=== PATIENT | male | born 1950 | race Caucasian/White ===

== ENCOUNTER 2018-09-07 00:22 | Emergency (ER) | payer OTHER ==
[~2018-09-07] VITALS: Ht 180.3 cm; Wt 78.5 kg
[2018-09-07 00:36] VITALS: BP 100/71
[2018-09-07] MEDS ORDERED: RISPERDAL0.25 MG PO (00:41)
[2018-09-07] MEDS ORDERED: AMITRIPTYLINE H25 M2 PO (00:42)
[2018-09-07] MEDS ORDERED: REQUIP3 MG PO (00:42)
[2018-09-07 01:17] LABS: URINE BILIRUBIN NEGATIVE (Negative); URINE BLOOD TRACE (Negative); URINE CLARITY CLEAR; URINE COLOR YELLOW; URINE GLUCOSE-RANDOM NEGATIVE (Negative); URINE KETONES NEGATIVE (Negative); URINE LEUKOCYTES-REFLEX NEGATIVE (Negative); URINE NITRITE-REFLEX NEGATIVE (Negative); URINE PROTEIN 1+ (Negative); URINE SPECIFIC GRAVITY 1.025 (1.005-1.030); URINE UROBILINOGEN 0.2 E.U./dl (0.2-1.0)
[2018-09-07 01:25] LABS: ABSOLUTE EOSINOPHILS 0.1 thou/uL (0.0-0.7); ABSOLUTE MONOCYTES 0.7 thou/uL (0.0-1.2); ABSOLUTE NEUTROPHILS 7.6 thou/uL (1.6-8.1); BASOPHILS 0.5 %; HEMATOCRIT 39.4 % (42.0-52.0); HEMOGLOBIN 13.1 gm/dL (14.0-18.0); LYMPHOCYTES 10.7 %; MCH 31.1 pg (26.0-34.0); MCHC 33.4 g/dL (28.0-37.0); MCV 93.2 fL (80.0-100.0); MONOCYTES 7.8 %; MPV 7.8 fl. (7.2-11.1); NUCLEATED RBCS 0 /100WBC; PLATELET COUNT* 206 thou/uL (150-400); RBC 4.22 mil/uL (4.50-6.00); RDW-CV 13.8 % (10.5-14.5); WBC 9.6 thou/uL (4.0-11.0)
[2018-09-07 01:30] LABS: ANION GAP 16 mmol/L (7-16); BUN 33 mg/dL (7-18); CALCIUM 8.1 mg/dL (8.5-10.1); CHLORIDE 111 mmol/L (98-107); CO2 15 mmol/L (21-32); GLUCOSE 140 mg/dL (70-99); SODIUM 142 mmol/L (136-145)
[2018-09-07 01:32] LABS: POTASSIUM 2.7 mmol/L (3.5-5.1)
[2018-09-07 01:39] LABS: ALBUMIN 2.9 g/dL (3.4-5.0); ALKALINE PHOSPHATASE 123 U/L (46-116); LIPASE 394 U/L (73-393); SGOT 22 U/L (15-37); SGPT 33 U/L (30-65); TOTAL BILIRUBIN 0.2 mg/dL (<0.1-1.0); TROPONIN-I LEVEL <0.06 ng/mL (<0.06)
[2018-09-07] MEDS ORDERED: NORCO 5-325 TA1 EACH PO (04:03)
[2018-09-07] MEDS ORDERED: PHENERGAN 25 MG25 M1 PO (04:03)
[2018-09-07] MEDS ORDERED: POTASSIUM20 PO (04:03)
[2018-09-07 04:16] VITALS: BP 99/68
== END 2018-09-07 04:20 | disposition home or self-care (01) ==
LOC: M.ERS 00:22 → M.TBA-ER 03:58 → M.ERS 03:58
PROVIDERS: Personal Emergency Response Attendant
DX: K50.90 Crohn's disease, unspecified, without complications (principal); E87.6 Hypokalemia; F17.210 Nicotine dependence, cigarettes, uncomplicated; Z88.0 Allergy status to penicillin; Z88.8 Allergy status to other drugs, medicaments and biological substances

== ENCOUNTER 2018-09-17 21:02 | Emergency (ER) | payer OTHER ==
[~2018-09-17] VITALS: Ht 180.3 cm; Wt 78.5 kg
[~2018-09-17 21:02] MED LIST: AMITRIPTYLINE H25 M2 PO; NORCO 5-325 TA1 EACH PO; PHENERGAN 25 MG25 M1 PO; POTASSIUM20 PO; REQUIP3 MG PO; RISPERDAL0.25 MG PO
[2018-09-17 21:44] LABS: ABSOLUTE BASOPHILS 0.1 thou/uL (0.0-0.2); ABSOLUTE EOSINOPHILS 0.1 thou/uL (0.0-0.7); ABSOLUTE LYMPHOCYTES 1.4 thou/uL (0.8-5.3); ABSOLUTE MONOCYTES 0.8 thou/uL (0.0-1.2); ABSOLUTE NEUTROPHILS 5.6 thou/uL (1.6-8.1); EOSINOPHILS 1.7 %; HEMATOCRIT 37.1 % (42.0-52.0); HEMOGLOBIN 12.6 gm/dL (14.0-18.0); MCH 31.9 pg (26.0-34.0); MCV 93.7 fL (80.0-100.0); MONOCYTES 9.5 %; MPV 7.8 fl. (7.2-11.1); NUCLEATED RBCS 0 /100WBC; PLATELET COUNT* 232 thou/uL (150-400); POLYS 70.8 %; RBC 3.96 mil/uL (4.50-6.00)
[2018-09-17 21:47] LABS: URINE BILIRUBIN NEGATIVE (Negative); URINE BLOOD NEGATIVE (Negative); URINE CLARITY CLEAR; URINE COLOR YELLOW; URINE GLUCOSE-RANDOM NEGATIVE (Negative); URINE KETONES NEGATIVE (Negative); URINE LEUKOCYTES-REFLEX NEGATIVE (Negative); URINE NITRITE-REFLEX NEGATIVE (Negative); URINE PROTEIN 1+ (Negative); URINE SPECIFIC GRAVITY 1.025 (1.005-1.030); URINE UROBILINOGEN 0.2 E.U./dl (0.2-1.0)
[2018-09-17 21:51] LABS: CALCIUM 8.4 mg/dL (8.5-10.1); CREATININE 1.8 mg/dL (0.6-1.3); POTASSIUM 3.1 mmol/L (3.5-5.1)
[2018-09-17 21:55] LABS: ALBUMIN 2.9 g/dL (3.4-5.0); TOTAL BILIRUBIN 0.2 mg/dL (<0.1-1.0); TOTAL PROTEIN 6.1 g/dL (6.4-8.2)
[2018-09-17] MEDS ORDERED: MEDROLDOSEPACK PO (22:37)
[2018-09-17 22:59] VITALS: BP 103/76
== END 2018-09-17 22:59 | disposition home or self-care (01) ==
LOC: M.ERS 21:02
PROVIDERS: Nurse Practitioner Family
DX: R10.33 Periumbilical pain (principal); F31.9 Bipolar disorder, unspecified; Z90.49 Acquired absence of other specified parts of digestive tract; F17.210 Nicotine dependence, cigarettes, uncomplicated; Z88.0 Allergy status to penicillin; Z88.8 Allergy status to other drugs, medicaments and biological substances; R19.7 Diarrhea, unspecified

== ENCOUNTER 2018-09-26 22:37 | Emergency (ER) | payer OTHER ==
[~2018-09-26] VITALS: Ht 180.3 cm; Wt 78.5 kg
[~2018-09-26 22:37] MED LIST changes: +MEDROLDOSEPACK PO
[2018-09-26 23:30] LABS: URINE BILIRUBIN NEGATIVE (Negative); URINE BLOOD TRACE (Negative); URINE CLARITY CLEAR; URINE COLOR YELLOW; URINE GLUCOSE-RANDOM NEGATIVE (Negative); URINE KETONES NEGATIVE (Negative); URINE LEUKOCYTES-REFLEX NEGATIVE (Negative); URINE NITRITE-REFLEX NEGATIVE (Negative); URINE PROTEIN 2+ (Negative); URINE UROBILINOGEN 0.2 E.U./dl (0.2-1.0)
[2018-09-26 23:36] LABS: ABSOLUTE BASOPHILS 0.1 thou/uL (0.0-0.2); ABSOLUTE EOSINOPHILS 0.1 thou/uL (0.0-0.7); ABSOLUTE LYMPHOCYTES 1.5 thou/uL (0.8-5.3); ABSOLUTE MONOCYTES 1.2 thou/uL (0.0-1.2); ABSOLUTE NEUTROPHILS 12.3 thou/uL (1.6-8.1); BASOPHILS 0.5 %; EOSINOPHILS 0.6 %; HEMATOCRIT 41.3 % (42.0-52.0); HEMOGLOBIN 13.6 gm/dL (14.0-18.0); LYMPHOCYTES 9.6 %; MCH 31.4 pg (26.0-34.0); MCHC 33.1 g/dL (28.0-37.0); MONOCYTES 8.2 %; MPV 7.7 fl. (7.2-11.1); NUCLEATED RBCS 0 /100WBC; PLATELET COUNT* 238 thou/uL (150-400); POLYS 81.1 %; RBC 4.34 mil/uL (4.50-6.00); RDW-CV 13.6 % (10.5-14.5); WBC 15.2 thou/uL (4.0-11.0)
[2018-09-26 23:40] LABS: BACTERIA-REFLEX 1-9 Few /HPF (None Seen); CASTS None Seen /LPF (None Seen); CRYSTALS None Seen /LPF (None Seen); SQUAMOUS 0-3 Few /LPF (0-3); URINE RBC 0-2 Rare /HPF (0-2); URINE WBC-REFLEX 0-5 Rare /HPF (0-5)
[2018-09-26 23:45] LABS: ANION GAP 16 mmol/L (7-16); BUN 31 mg/dL (7-18); CALCIUM 8.4 mg/dL (8.5-10.1); CHLORIDE 106 mmol/L (98-107); CO2 16 mmol/L (21-32); CREATININE 1.8 mg/dL (0.6-1.3); GLUCOSE 102 mg/dL (70-99); SODIUM 138 mmol/L (136-145)
[2018-09-26 23:48] LABS: POTASSIUM 2.7 mmol/L (3.5-5.1)
[2018-09-26 23:51] LABS: ALBUMIN 2.9 g/dL (3.4-5.0); ALKALINE PHOSPHATASE 111 U/L (46-116); LIPASE 280 U/L (73-393); SGOT 16 U/L (15-37); SGPT 20 U/L (30-65); TOTAL BILIRUBIN 0.3 mg/dL (<0.1-1.0); TOTAL PROTEIN 6.7 g/dL (6.4-8.2); TROPONIN-I LEVEL <0.06 ng/mL (<0.06)
[2018-09-27 00:10] LABS: AMP/METHAMP Negative (Negative); BARBITURATES Negative (Negative); BENZODIAZEPINES Negative (Negative); COCAINE Negative (Negative); METHADONE Negative (Negative); OPIATES Negative (Negative); PCP Negative (Negative); THC Negative (Negative)
[2018-09-27] MEDS ORDERED: ONDANSETRON HCL4 M2 PO (00:40)
[2018-09-27] MEDS ORDERED: ACETAMINOPHEN-1 EAC1 PO (00:40)
[2018-09-27] MEDS ORDERED: POTASSIUM20 PO (00:41)
[2018-09-27] MEDS ORDERED: CIPROFLOXACIN500 M1 PO (02:44)
[2018-09-27] MEDS ORDERED: FLAGYL500 M1 PO (02:44)
[2018-09-27 03:14] VITALS: BP 108/66
--- NOTE | 2018-09-27 11:35 | EKG ---
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 : 1950 Requested By: Amberly Whiteside Order Number: [id number] MD: Maurilio Marie Measurements Intervals [place] Rate: 60 P: 81 [place]: 179 QRS: 76 QRSD: 102 T: 74 QT: 390 QTc: 390 Interpretive Statements Sinus rhythm Low voltage, extremity leads Nonspecific T abnormalities, lateral leads No previous ECG available for comparison Electronically Signed On 09-27-2018 11:35:30 CDT by Maurilio Marie [email or web address] <ELECTRONICALLY SIGNED> By: Maurilio Marie MD, [facility] 09/27/18 1135 26 26 Maurilio Marie MD, [facility] /EPI
== END 2018-09-27 03:16 | disposition home or self-care (01) ==
LOC: M.ERS 22:37
PROVIDERS: Physician Assistant
DX: K50.90 Crohn's disease, unspecified, without complications (principal); E87.6 Hypokalemia; R11.2 Nausea with vomiting, unspecified; F31.9 Bipolar disorder, unspecified; F17.210 Nicotine dependence, cigarettes, uncomplicated; Z88.8 Allergy status to other drugs, medicaments and biological substances; Z88.6 Allergy status to analgesic agent; Z88.0 Allergy status to penicillin; Z91.013 Allergy to seafood; Z90.49 Acquired absence of other specified parts of digestive tract

== ENCOUNTER 2018-12-02 23:44 | Emergency (ER) | payer OTHER ==
[~2018-12-02] VITALS: Ht 180.3 cm; Wt 76.7 kg
[~2018-12-02 23:44] MED LIST changes: +ACETAMINOPHEN-1 EAC1 PO; +CIPROFLOXACIN500 M1 PO; +FLAGYL500 M1 PO; +ONDANSETRON HCL4 M2 PO
[2018-12-02] MEDS ORDERED: REQUIP5 MG PO ×2 (23:49)
[2018-12-02] MEDS ORDERED: POTASSIUM20 PO (23:50)
[2018-12-03 00:21] LABS: ABSOLUTE BASOPHILS 0.1 thou/uL (0.0-0.2); ABSOLUTE EOSINOPHILS 0.1 thou/uL (0.0-0.7); ABSOLUTE LYMPHOCYTES 1.4 thou/uL (0.8-5.3); ABSOLUTE MONOCYTES 0.9 thou/uL (0.0-1.2); ABSOLUTE NEUTROPHILS 6.7 thou/uL (1.6-8.1); BASOPHILS 0.8 %; EOSINOPHILS 1.2 %; HEMATOCRIT 39.3 % (42.0-52.0); HEMOGLOBIN 13.2 gm/dL (14.0-18.0); LYMPHOCYTES 14.9 %; MCH 32.4 pg (26.0-34.0); MCHC 33.5 g/dL (28.0-37.0); MCV 96.7 fL (80.0-100.0); MONOCYTES 10.1 %; NUCLEATED RBCS 0 /100WBC; PLATELET COUNT* 208 thou/uL (150-400); RBC 4.06 mil/uL (4.50-6.00); RDW-CV 13.8 % (10.5-14.5); WBC 9.2 thou/uL (4.0-11.0)
[2018-12-03 00:50] LABS: CALCIUM 8.4 mg/dL (8.5-10.1); CREATININE 2.5 mg/dL (0.6-1.3); TOTAL BILIRUBIN 0.3 mg/dL (<0.1-1.0); TOTAL PROTEIN 6.2 g/dL (6.4-8.2)
[2018-12-03 00:55] LABS: POTASSIUM 3.1 mmol/L (3.5-5.1)
[2018-12-03] MEDS ORDERED: FLAGYL500 M1 PO (03:53)
[2018-12-03] MEDS ORDERED: ACETAMINOPHEN-1 EAC1 PO (03:53)
[2018-12-03] MEDS ORDERED: PREDNISONE50 MG PO (03:53)
[2018-12-03 04:03] VITALS: BP 104/64
== END 2018-12-03 04:03 | disposition home or self-care (01) ==
LOC: M.ERS 23:44
PROVIDERS: Emergency Medicine
DX: R10.13 Epigastric pain (principal); R19.7 Diarrhea, unspecified; R10.30 Lower abdominal pain, unspecified; F31.9 Bipolar disorder, unspecified; K50.90 Crohn's disease, unspecified, without complications; F17.210 Nicotine dependence, cigarettes, uncomplicated; Z88.0 Allergy status to penicillin; Z90.49 Acquired absence of other specified parts of digestive tract; Z88.6 Allergy status to analgesic agent; Z88.8 Allergy status to other drugs, medicaments and biological substances; Z91.013 Allergy to seafood

== ENCOUNTER 2019-03-12 00:46 | Emergency (ER) | payer OTHER ==
[~2019-03-12] VITALS: Ht 180.3 cm; Wt 70.3 kg
[~2019-03-12 00:46] MED LIST changes: +PREDNISONE50 MG PO; +REQUIP5 MG PO
[2019-03-12 00:56] VITALS: BP 102/68
[2019-03-12 01:40] LABS: ABSOLUTE BASOPHILS 0.1 thou/uL (0.0-0.2); ABSOLUTE EOSINOPHILS 0.1 thou/uL (0.0-0.7); ABSOLUTE LYMPHOCYTES 1.7 thou/uL (0.8-5.3); ABSOLUTE MONOCYTES 0.8 thou/uL (0.0-1.2); ABSOLUTE NEUTROPHILS 6.9 thou/uL (1.6-8.1); BASOPHILS 0.6 %; EOSINOPHILS 1.2 %; HEMATOCRIT 39.7 % (42.0-52.0); HEMOGLOBIN 13.5 gm/dL (14.0-18.0); LYMPHOCYTES 17.6 %; MCH 32.1 pg (26.0-34.0); MCHC 33.9 g/dL (28.0-37.0); MCV 94.6 fL (80.0-100.0); MONOCYTES 8.4 %; MPV 7.6 fl. (7.2-11.1); NUCLEATED RBCS 0 /100WBC; PLATELET COUNT* 220 thou/uL (150-400); POLYS 72.2 %; RBC 4.19 mil/uL (4.50-6.00); RDW-CV 13.6 % (10.5-14.5); WBC 9.5 thou/uL (4.0-11.0)
[2019-03-12 01:42] LABS: URINE BILIRUBIN NEGATIVE (Negative); URINE BLOOD TRACE (Negative); URINE CLARITY CLEAR; URINE COLOR YELLOW; URINE GLUCOSE-RANDOM NEGATIVE (Negative); URINE KETONES NEGATIVE (Negative); URINE LEUKOCYTES-REFLEX NEGATIVE (Negative); URINE NITRITE-REFLEX NEGATIVE (Negative); URINE PROTEIN TRACE (Negative); URINE UROBILINOGEN 0.2 E.U./dl (0.2-1.0)
[2019-03-12 01:49] LABS: CREATININE 2.2 mg/dL (0.6-1.3); POTASSIUM 3.4 mmol/L (3.5-5.1)
[2019-03-12 01:53] LABS: ALBUMIN 3.3 g/dL (3.4-5.0); TOTAL BILIRUBIN 0.3 mg/dL (<0.1-1.0); TOTAL PROTEIN 6.8 g/dL (6.4-8.2)
[2019-03-12 03:45] VITALS: BP 89/58
--- NOTE | 2019-03-14 10:45 | EKG ---
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1950 Requested By: Clayton Ayon Order Number: [id number] MD: Dimitris Roberts Measurements Intervals [place] Rate: 62 P: 79 [place]: 185 QRS: 56 QRSD: 99 T: 43 QT: 415 QTc: 422 Interpretive Statements Sinus rhythm Atrial premature complex Low voltage, extremity leads Minimal ST elevation, anterior leads Compared to ECG 10/08/2018 22:48:04 Atrial premature complex(es) now present ST (T wave) deviation now present Electronically Signed On 03-14-2019 10:45:18 RIDE OPERATOR by Dimitris Roberts [email or web address] <ELECTRONICALLY SIGNED> By: Dimitris Roberts MD, FACC 03/14/19 1045 0147 0147 Dimitris Roberts MD, FAC /EPI
== END 2019-03-12 03:45 | disposition home or self-care (01) ==
LOC: M.ERS 00:46 → M.TBA-ER 03:24 → M.ERS 03:24
PROVIDERS: Family Medicine
DX: R10.84 Generalized abdominal pain (principal); F31.9 Bipolar disorder, unspecified; F17.210 Nicotine dependence, cigarettes, uncomplicated; Z88.0 Allergy status to penicillin; Z88.6 Allergy status to analgesic agent; Z91.013 Allergy to seafood; Z88.8 Allergy status to other drugs, medicaments and biological substances; Z90.49 Acquired absence of other specified parts of digestive tract

== ENCOUNTER 2019-03-28 22:59 | Emergency (ER) | payer OTHER ==
[~2019-03-28] VITALS: Ht 180.3 cm; Wt 74.8 kg
[2019-03-29 00:05] LABS: ABSOLUTE BASOPHILS 0.1 thou/uL (0.0-0.2); ABSOLUTE EOSINOPHILS 0.1 thou/uL (0.0-0.7); ABSOLUTE LYMPHOCYTES 1.4 thou/uL (0.8-5.3); ABSOLUTE MONOCYTES 0.7 thou/uL (0.0-1.2); ABSOLUTE NEUTROPHILS 7.5 thou/uL (1.6-8.1); BASOPHILS 0.8 %; HEMATOCRIT 37.1 % (42.0-52.0); HEMOGLOBIN 12.9 gm/dL (14.0-18.0); LYMPHOCYTES 14.6 %; MCH 32.4 pg (26.0-34.0); MCHC 34.7 g/dL (28.0-37.0); MCV 93.2 fL (80.0-100.0); MONOCYTES 7.4 %; MPV 7.8 fl. (7.2-11.1); NUCLEATED RBCS 0 /100WBC; PLATELET COUNT* 230 thou/uL (150-400); POLYS 76.2 %; RBC 3.99 mil/uL (4.50-6.00); RDW-CV 13.4 % (10.5-14.5); WBC 9.9 thou/uL (4.0-11.0)
[2019-03-29 00:19] LABS: CALCIUM 8.6 mg/dL (8.5-10.1); CREATININE 2.6 mg/dL (0.6-1.3)
[2019-03-29 00:21] LABS: POTASSIUM 2.6 mmol/L (3.5-5.1)
[2019-03-29 00:23] LABS: ALBUMIN 2.9 g/dL (3.4-5.0); TOTAL BILIRUBIN 0.2 mg/dL (<0.1-1.0); TOTAL PROTEIN 6.1 g/dL (6.4-8.2)
[2019-03-29] MEDS ORDERED: POTASSIUM20 PO (02:10)
[2019-03-29] MEDS ORDERED: ZOFRAN ODT4 MG PO (02:12)
[2019-03-29 02:47] VITALS: BP 99/66
--- NOTE | 2019-03-29 14:08 | EKG ---
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: [place] : 1950 Requested By: Natasha Edmond Order Number: [id number] MD: Rodrigo Bishop Measurements Intervals [place] Rate: 64 P: 80 [place]: 176 QRS: 87 QRSD: 99 T: 60 QT: 384 QTc: 396 Interpretive Statements Sinus rhythm Multiple premature atrial complexes Borderline right axis deviation Low voltage, extremity leads Compared to ECG 03/12/2019 01:47:31 ST (T wave) deviation no longer present Electronically Signed On 03-29-2019 14:07:38 PEN AND PENCIL REPAIRER by Rodrigo Bishop [email or web address] <ELECTRONICALLY SIGNED> By: Rodrigo Bishop MD, [facility] 03/29/19 1402 2316 2316 Rodrigo Bishop MD, [facility] /EPI
== END 2019-03-29 02:47 | disposition home or self-care (01) ==
LOC: M.ERS 22:59
PROVIDERS: Emergency Medicine
DX: E87.6 Hypokalemia (principal); R10.84 Generalized abdominal pain; R11.0 Nausea; K50.90 Crohn's disease, unspecified, without complications; F31.9 Bipolar disorder, unspecified; F17.210 Nicotine dependence, cigarettes, uncomplicated; Z90.49 Acquired absence of other specified parts of digestive tract; Z91.013 Allergy to seafood; Z88.0 Allergy status to penicillin; Z88.6 Allergy status to analgesic agent; Z88.8 Allergy status to other drugs, medicaments and biological substances